=== PATIENT | female | born 1975 | race Caucasian/White ===

== ENCOUNTER 2024-12-25 07:26 | Day surgery (SDC) | payer BC, SELFPAY ==
--- OUTSIDE RECORDS SUMMARY | 2024-06-20 09:00 | XMS_ITS ---
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 [employer] [address] [facility] [address] [place] [address] 06/20/2024 Xenia Chiang Plan Of Treatment Next Appt Details Provider Name:Xenia silverman, 10/14/2025 09:20:00 AM, [address] [facility], [address], [place], [address], Progress Notes * JAKLast ANNAFARZANAOB:1975 (49 yo F)Acc No.[id number]:06/20/2024 PROGRESS NOTES Patient: ЕКАТЕРИНА ALBERT Appointment Provider: Last Chiang M.D. :1975 A ge:48 Y S ex:Female Date:06/20/2024 Address:[address] [place], [place] [id number] Pcp:KANDI SORIANO Subjective: * Chief Complaints: * 1 . 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 * Medical History: Objective: * Vitals: Assessment: Plan: * Treatment: * Images: Billing Information: * Visit Code: * Procedure Codes: * Electronic signature of Shireen Chiang MD on 12/21/2024 at 01:40 PM EDT Sign off status: Pending * Appointment Provider: Last FitchD. Date: 1 08/21/2023 Generated for Patricia nair/Damon/Vannesa on: 0 12/21/2024 01:40 PM EDT
[2024-12-21 13:40] VITALS: BMI 37.4
--- NOTE | 2024-12-24 10:17 | HO.ANESPROP2 ---
Documented by User: Stefany Redmond NP 12/24/24 10:17 HPI - Anesthesia Eval Consult details Narrative: 49yo F for Colonoscopy [facility] Past Medical History Medical History Hiatal hernia GERD (gastroesophageal reflux disease) Vertigo HTN (hypertension) Basal cell carcinoma Asthma Surgical History Surgical History History of esophagogastroduodenoscopy (EGD) H/O colonoscopy Social History Social History Are you a primary care navigator to a significant other at home: No Do you presently have visiting nurse or other home services: No Patient Tobacco Use Status: Never used Tobacco Meds Allergies Allergy/AdvReac Type Severity Reaction Status Date / Time codeine Allergy Intermediate HIVES Verified 12/25/24 07:47 Penicillins Allergy Intermediate HIVES Verified 12/25/24 07:47 Sulfa (Sulfonamide Allergy Intermediate HIVES Verified 12/25/24 07:47 Antibiotics) shellfish derived (shellfish) Allergy Unknown Unknown Verified 12/25/24 07:47 tree nut Allergy Unknown Unknown Verified 12/25/24 07:47 Home Medications ?Medication ?Instructions ?Recorded ?Confirmed ?Last Taken ?Type olmesartan 5 mg tablet 10 mg PO DAILY 12/21/24 12/21/24 Unknown History Exam Height,Weight and Vital Signs: Height 5 ft 9 in Weight 114.759 kg Assessment and Plan Assessment Anesthesia Assessment: Chart Reviewed Documented by User: Shruti Almanza MD 12/25/24 08:48 [facility] Past Medical History Medical History Hiatal hernia GERD (gastroesophageal reflux disease) Vertigo HTN (hypertension) Basal cell carcinoma Asthma Surgical History Surgical History History of esophagogastroduodenoscopy (EGD) H/O colonoscopy History of Problems with Anesthesia: No Social History Social History Are you a primary care navigator to a significant other at home: No Do you presently have visiting nurse or other home services: No Patient Tobacco Use Status: Never used Tobacco Meds Allergies Allergy/AdvReac Type Severity Reaction Status Date / Time codeine Allergy Intermediate HIVES Verified 12/25/24 07:47 Penicillins Allergy Intermediate HIVES Verified 12/25/24 07:47 Sulfa (Sulfonamide Allergy Intermediate HIVES Verified 12/25/24 07:47 Antibiotics) shellfish derived (shellfish) Allergy Unknown Unknown Verified 12/25/24 07:47 tree nut Allergy Unknown Unknown Verified 12/25/24 07:47 Home Medications ?Medication ?Instructions ?Recorded ?Confirmed ?Last Taken ?Type olmesartan 5 mg tablet 10 mg PO DAILY 12/21/24 12/21/24 Unknown History Exam Airway Mallampati Class: II Neck ROM: Full Loose/Missing/Broken Teeth: No Heart: RRR Lungs: CTA Assessment and Plan Assessment Anesthesia Assessment: Anesthesia Plan Discussed Final Anesthetic Review History of Problems with Anesthesia: No NPO: Yes ASA Class: II Final Preanesthetic Review: Meds/Allgs Chart Reviewed, Consent Obtained/Reviewed and Anes Risks/Benef Reviewed Patient Risk: Low Procedure Risk: Low Anesthetic Plan Anesthetic Plan: MAC: Disposition: Standard PACU
[2024-12-25 07:39] VITALS: BMI 37.3
[2024-12-25 07:51] LABS: UPreg QC Valid YES; Urine Pregnancy NEGATIVE (NEGATIVE)
[2024-12-25] MEDS: Lactated Ringers 1,000 ML 100 ML IVCONT (07:57)
[2024-12-25 07:59] VITALS: BP 140/92; PULSE 84; RESP 18; TEMP 36.7; O2SAT 99
--- NOTE | 2024-12-25 08:38 | MHC.SHP ---
Pre-Procedural Eval Section A - 24 Hr Update-Section A only Date of Service: 12/25/24 Section B - Complete if H&P > 30 days Chief Complaint: Hemorrhage of anus and rectum Details of Present Illness: see h&p no chabnges Relevant Family History (Specify if Yes): No Relevant Social History: None Allergies: Allergies Allergy/AdvReac Type Severity Reaction Status Date / Time codeine Allergy Intermediate HIVES Verified 12/25/24 07:47 Penicillins Allergy Intermediate HIVES Verified 12/25/24 07:47 Sulfa (Sulfonamide Allergy Intermediate HIVES Verified 12/25/24 07:47 Antibiotics) shellfish derived (shellfish) Allergy Unknown Unknown Verified 12/25/24 07:47 tree nut Allergy Unknown Unknown Verified 12/25/24 07:47 Review of Systems Sugical H&P ROS: Negative: Constitution, Cardiovascular, Respiratory, Neurological, Psychiatric, Hem-Onc, Allergic/Immunologic, Gastrointestinal, Genitourinary, Musculoskeletal, Integumentary, Endocrine and Eyes/Ears/Nose/Throat Exam Surgical H&P Exam: Normal: HEENT, Normal: Heart, Normal: Lungs, Normal: Extremities, Normal: Abdomen, Normal: Skin and Normal: Neurological Plan Diagnosis/Plan: Unchanged I have reviewed the history and physical and performed a pertinent physical examination on my patient. No changes have occurred unless specified. Time Spent With Patient Time: Total time managing care of this patient today ____ minutes.
[2024-12-25 09:05] VITALS: BP 105/65; PULSE 60; RESP 16; TEMP 36.6; O2SAT 98
[2024-12-25 09:20] VITALS: BP 127/82; PULSE 65; RESP 16; TEMP 36.6; O2SAT 95
--- NOTE | 2024-12-25 09:54 | OP_ITS ---
DATE OF SERVICE: 12/25/2024 SURGEON: Wolf Sneed MD INDICATIONS: Colon cancer screening. PREOPERATIVE DIAGNOSIS: POSTOPERATIVE DIAGNOSIS: PROCEDURE PERFORMED: Colonoscopy to the terminal ileum. ESTIMATED BLOOD LOSS: COMPLICATIONS: ANESTHESIA: Monitored anesthesia care. ASSISTANTS: SPECIMENS: DESCRIPTION OF PROCEDURE: A history and physical was performed. The risks and benefits of the procedure were explained to the patient. Informed consent was obtained. The patient was placed in the left lateral decubitus position. A digital rectal exam was performed and was found to be normal. The Olympus pediatric video colonoscope was introduced into the rectum and advanced to the cecum. The cecum was identified by transillumination, palpation, and identification of ileocecal valve. Examination was performed. The scope was removed. She tolerated the procedure well and was returned to the recovery area in stable condition. FINDINGS: The terminal ileum was examined and appeared normal. The visualized colonic mucosa was normal. The quality of the prep was good. No polyps were identified. There was very minimal diverticulosis involving the sigmoid. Retroflexed examination showed some moderate-sized internal hemorrhoids. IMPRESSION: Normal colonoscopy. RECOMMENDATION: Repeat colonoscopy in 10 years. MD EVANGELINA aBlderrama/MANDYL / [phone] MTDD
== END 2024-12-25 09:45 | disposition home or self-care (01) ==
PROVIDERS: Nurse Practitioner; PCP Family Medicine; Visit Provider Internal Medicine Gastroenterology
PROC: 0DJD8ZZ Inspection of Lower Intestinal Tract, Via Natural or Artificial Opening Endoscopic (ICD-10-PCS; CPT 45378; principal; 2024-12-25 09:10)
DX: Z12.11 Encounter for screening for malignant neoplasm of colon (principal); K57.30 Diverticulosis of large intestine without perforation or abscess without bleeding; K64.8 Other hemorrhoids; I10 Essential (primary) hypertension; J45.909 Unspecified asthma, uncomplicated; C44.91 Basal cell carcinoma of skin, unspecified; Z79.899 Other long term (current) drug therapy
CPT/HCPCS: 45378; 81025; J2003; J2704

== ENCOUNTER 2025-06-14 14:48 | Emergency (ER) | payer BC, SELFPAY ==
--- OUTSIDE RECORDS SUMMARY | 2024-06-20 08:00 | XMS_ITS ---
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 [address] [place] [address] 06/20/2024 Xenia Chiang Plan Of Treatment Next Appt Details Provider Name:Xenia silverman, 10/14/2025 09:20:00 AM, [address] [facility], [address], [place], [address], Progress Notes * ANNA MARINOFARZANAOB:1975 (49 yo F)Acc No.[id number]:06/20/2024 PROGRESS NOTES Patient: ЕКАТЕРИНА ALBERT Appointment Provider: Last Chiang M.D. :1975 A ge:48 Y S ex:Female Date:06/20/2024 Address:[address] [place], [place] [id number] Pcp:KANDI SORIANO Subjective: * Chief Complaints: * 1 . 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 * Medical History: Objective: * Vitals: Assessment: Plan: * Treatment: * Images: Billing Information: * Visit Code: * Procedure Codes: * Electronic signature of Shireen Chiang MD on 06/14/2025 at 08:39 PM EST Sign off status: Pending * Appointment Provider: Last Chiang M.D. Date: 08/21/2023 Generated for Patricia nair/Damon/Vannesa on: 08/15/2024 08:39 PM EST
--- OUTSIDE RECORDS SUMMARY | 2024-10-15 08:35 | XMS_ITS ---
Author Organization [facility] Address [address] [place] [address] Care Team Providers Care Tire Balancer Name Role Phone Clinton Coelho Primary Care Provider Wolf Mora Jr REASON FOR VISIT BLEEDING Encounters Encounter Location Date Provider Diagnosis [facility] [address] [place] [phone] 10/15/2024 Wolf Sneed Jr Plan Of Treatment No Information Progress Notes * ZI MARINOOB:1975 (49 yo F)Acc No.[id number]:10/15/2024 Progress Notes Patient: ЕКАТЕРИНА ALBERT Provider: Erma Sneed MD :1975 A ge:48 Y S ex:Female Date:10/15/2024 Address:[address] [place] [address] [facility] Pcp:Clinton Coelho Subjective: * Chief Complaints: * B LEEDING * The named appointment provid er may or may not be the originator of this progress note, and it is not deemed complete until electronically signed by the appointment provider. Sign off status: Pending * Provider: Erma Sneed MD Date: 0 10/15/2024 Generated for Jimenezi joanie/Fawilfredog/eTransmitting on: 1 08/15/2024 08:39 PM EST
--- OUTSIDE RECORDS SUMMARY | 2024-10-25 10:55 | XMS_ITS ---
Author Organization [facility] Address [address] [place] [address] Care Team Providers Care [employer] Assistant Manager Name Role Phone Clinton Coelho Primary Care Provider Wolf Mora Jr REASON FOR VISIT Patient presents today for hemo + Encounters Encounter Location Date Provider Diagnosis [facility] [address] [place] [address] 10/25/2024 Wolf Sneed Jr Plan Of Treatment No Information Progress Notes * ZI MARINOOB:1975 (49 yo F)Acc No.[id number]:10/25/2024 Progress Notes Patient: ЕКАТЕРИНА ALBERT Provider: Erma Sneed MD :1975 A ge:48 Y S ex:Female Date:10/25/2024 Address:[address] [place], [place] [phone] Pcp:Clinton Coelho Subjective: * Chief Complaints: * P atient presents today for hemo + * The named appointment provid er may or may not be the originator of this progress note, and it is not deemed complete until electronically signed by the appointment provider. Sign off status: Pending * Provider: Erma Sneed MD Date: 0 10/25/2024 Generated for Printi ng/Faxing/eTransmitting on: 1 08/15/2024 08:40 PM EST
--- OUTSIDE RECORDS SUMMARY | 2024-12-25 04:10 | XMS_ITS ---
Author Organization [facility] Address [address] [place] [phone] Care Team Providers Care Resistance Brazer Name Role Phone Clinton Coelho Primary Care Provider Wolf Mora Jr REASON FOR VISIT rectal bleeding Encounters Encounter Location Date Provider Diagnosis [facility] [address] [place] [phone] 12/25/2024 Wolf Sneed Jr Rectal bleeding K62.5 Assessments Encounter Date Diagnosis (ICD Code) Assessment Notes Treatment Notes Treatment Clinical Notes Section Notes 12/25/2024 Rectal bleeding (ICD-10 - K62.5) Plan Of Treatment No Information Progress Notes * ANNA MARINOFARZANAOB:1975 (49 yo F)Acc No.[id number]:12/25/2024 COLON WITH MAC Patient: ЕКАТЕРИНА ALBERT Provider: Erma Sneed MD :1975 A ge:49 Y S ex:Female Date:12/25/2024 Address:[address] [place], [place] [phone] Pcp:Clinton Coelho Subjective: * Chief Complaints: * R ectal bleeding Assessment: * Assessment: 1. R ectal bleeding - K62.5 (Primary) Plan: * Procedure Codes: 4 5378 DIAGNOSTIC COLONOSCOPY Billing Information: * Procedure Codes: 24942 DIAGNOSTIC COLONOSCOPY. * The named appointment provid er may or may not be the originator of this progress note, and it is not deemed complete until electronically signed by the appointment provider. Sign off status: Pending * Provider: Erma Sneed MD Date: 0 12/25/2024 Generated for Patricia nair/Damon/Vannesa on: 1 08/15/2024 08:39 PM EST
--- NOTE | ~2025-06-14 | CT_ITS ---
CLINICAL HISTORY: headache and dizziness CT head without contrast Comparison: None available Findings: No acute hemorrhage. Basal ganglia calcifications. No extra-axial fluid collection. No hydrocephalus, mass-effect or herniation. Burden-white differentiation is maintained. White matter is within normal limits for age. No acute orbital pathology. No acute soft tissue abnormality. No fracture. The visualized paranasal sinuses are predominantly clear. The mastoid air cells are clear. Impression: No acute findings. This document has been electronically signed by: Kalpana Weiss MD on 06/14/2025 17:51:52
[2025-06-14 14:58] VITALS: BP 128/96; PULSE 78; O2SAT 100
[2025-06-14 15:00] VITALS: BP 150/73; PULSE 72; RESP 16; TEMP 35.9; O2SAT 99; BMI 37.2
--- NOTE | 2025-06-14 15:14 | ECG_ITS ---
Test Reason : Dizziness Blood Pressure : */* mmHG Vent. Rate : 72 BPM Atrial Rate : 72 BPM P-R Int : 200 ms QRS Dur : 72 ms QT Int : 388 ms P-R-T Axes : 46 0 -1 degrees QTcB Int : 424 ms Normal sinus rhythm Septal infarct (cited on or before 05-Feb-2009) Abnormal ECG When compared with ECG of 05-Feb-2009 21:53, Nonspecific T wave abnormality, worse in Inferior leads Nonspecific T wave abnormality now evident in Anterior leads Referred By: Imani Tom Electronically Signed By: AMOL STUART MD
--- NOTE | 2025-06-14 15:24 | ED_ITS ---
HPI - General Adult General Chief complaint: General Medical Stated complaint: DIZZINESS NAUSEA Time Seen by Provider: 06/14/25 15:00 Source: patient and EMS Mode of arrival: EMS Limitations: no limitations History of Present Illness ED Provider: MIS SANTIZO narrative: 49-year-old female with past medical history of prior dizziness episodes but not this severe, hypertension, she is not on any blood thinners. She notes she has been dealing with sinus like illness and has been trying [id number] medications including Sudafed. 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 She states anytime she moves it is severe. She has no ringing in her ears. She has no chest pain or trouble breathing. She has no other neuro deficits such as numbness, weakness, vision changes. She has had similar symptoms in the past but this is very severe. She feels extremely nauseated. She denies any recent head trauma or chiropractor manipulation. MD complaint: acute onset dizziness, nausea, vomiting Onset (ago): hour(s) ( 10:30 today) Location: head Radiation: non-radiation Severity: moderate Relieving factors: immobilization Exacerbating factors: movement Associated symptoms: loss of appetite and nausea/vomiting Treatments prior to arrival: none Related Data Home Medications ?Medication ?Instructions ?Recorded ?Confirmed olmesartan 5 mg tablet 10 mg PO DAILY 12/21/2412/03 Allergies Allergy/AdvReac Type Severity Reaction Status Date / Time codeine Allergy Intermediate HIVES Verified 06/14/25 15:03 Penicillins Allergy Intermediate HIVES Verified 06/14/25 15:03 Sulfa (Sulfonamide Allergy Intermediate HIVES Verified 06/14/25 15:03 Antibiotics) shellfish derived (shellfish) Allergy Unknown Unknown Verified 06/14/25 15:03 tree nut Allergy Unknown Unknown Verified 06/14/25 15:03 Review of Systems 2 Review of Systems: Constitutional : No Fever, No Chills, No Fatigue ENT/Mouth : No sore throat, No Rhinorrhea, positive sinus congestion Eyes: No Eye Pain, No Swelling, No Redness Cardiovascular : No Chest Pain, No SOB, No Dyspnea on Exertion Respiratory : No Cough, No Sputum Gastrointestinal : pos Nausea, pos Vomiting, No Diarrhea, No abdominal Pain Genitourinary : No Dysuria, No Urinary Frequency, No Hematuria, Musculoskeletal : No joint pain, No Myalgias, No Joint Swelling Skin : No Skin Lesions, No rash Neuro : No Weakness, No Numbness, pos Dizziness, positive Headache All other systems reviewed and are negative [facility] Past Medical History Attestation statement: The following information was validated with the patient. Source: old records reviewed Medical History Hiatal hernia GERD (gastroesophageal reflux disease) Vertigo HTN (hypertension) Basal cell carcinoma Asthma Surgical History History of esophagogastroduodenoscopy (EGD) H/O colonoscopy Social History Social History Are you a primary inpatient care manager rn to a significant other at home: No Do you presently have visiting nurse or other home services: No Patient Tobacco Use Status: Never used Tobacco Smoked in Last 30 Days: No Use of substances other than those prescribed or required for medical reasons: No Advance Directives: No Advance Directives Information Provided: Yes Physical Exam ED Vital Signs: Vital Signs - 24 hr 06/14/25 15:00 06/14/25 16:00 Temperature 96.6 F L Pulse Rate 72 80 Respiratory Rate 16 20 Blood Pressure 150/73 H 148/78 H Pulse Oximetry 99 97 Oxygen Delivery Method Room Air Room Air BMI result Body Mass Index 37.2 Appearance: Alert. Oriented X3. moderate acute distress. active dry heaving if I ask her to move Eyes: Pupils equal, round and reactive to light. she has slight nystagmus when looking to the left ENT: Pharynx normal. Neck: Normal inspection. Neck supple. CVS: Normal heart rate and rhythm. Pulses normal. Respiratory: No respiratory distress. Breath sounds normal. Abdomen: Soft and nontender. Skin: Skin warm and dry. Normal skin color. Normal skin turgor. Extremities: No lower extremity edema. No calf ttp Neuro: Oriented X 3. No motor deficit. No sensory deficit. CN2-12 intact Course Course Course Narrative: signed out to Dr. Cornell pending CT scan and reassessment.4:22 PM 06/14/2025 (MIS MURPHY): Medications Administered Discontinued Medications Generic Name Dose Route Start Last Admin Trade Name Freq PRN Reason Stop Dose Admin Diphenhydramine HCl 25 mg 06/14/25:13 06/14/25 15:38 Diphenhydramine Hcl 50 Mg/Ml Vial IVPUSH 06/14/25 15:14 25 mg ONCE ONE Administration Acetaminophen 1,000 mg in 100 mls @ 400 mls/hr 06/14/25 15:13 06/14/25 16:49 Ofirmev IV 06/14/25 15:27 Infused ONCE ONE Infusion Prochlorperazine Edisylate 10 mg 06/14/25 15:13 06/14/25 15:38 Prochlorperazine Edisylate 10 Mg/2 Ml Vial IVPUSH 06/14/25 15:14 10 mg ONCE ONE Administration Medical Decision Making Differential Diagnosis Differential Diagnoses: The differential diagnosis associated with the presentation includes sinusitis, dizziness, dehydration, ESPINOZA she has no other neuro symptoms to suggest a posterior stroke but I will watch closely. She has no neck pain. I am going to obtain a CT head to rule out intracranial hemorrhage CT head was interpreted by radiology's grossly negative. No evidence of bleeding. Patient's electrolytes unremarkable. Well-appearing. Neurologically intact. No fever no chills white count is normal no signs of meningitis. No focal weakness. Will discharge patient home close follow-up on an outpatient basis. Symptom improved. COVID flu RSV were all negative. Admission/Observation Consideration of admission/observation: Escalation of care including admission/observation considered Lab Data MDM Lab Attestation statement: I reviewed the patient's lab results. 06/14/25 15:33 06/14/25 15:33 Labs: Lab Results 06/14/25 06/14/25 Range/Units 15:33 15:43 WBC 7.4 (4.8-10.8) X10*3/uL RBC 4.66 (4.20-5.50) X10*6/uL Hgb 12.8 (12.0-16.0) g/dl Hct 39.2 (37.0-47.0) % MCV 84.1 (80.0-98.0) fL MCH 27.5 (27.0-33.0) pg MCHC 32.7 (31.0-35.0) g/dl RDW 14.6 (11.0-16.0) % Plt Count 247 (160-400) X10*3/uL MPV 9.9 (9.4-12.3) fL Immature Gran % (Auto) 0.5 H (0.0-0.4) % Neut % (Auto) 83.9 H (45-73) % Lymph % (Auto) 12.3 L (20-40) % [place] % (Auto) 2.6 (2-11) % Eos % (Auto) 0.3 (0-4) % Baso % (Auto) 0.4 (0-2) % Lymph # (Auto) 0.9 L (1.2-4.9) X10*3/uL [place] # (Auto) 0.2 (0.1-1.2) X10*3/uL Eos # (Auto) 0.0 (0.0-0.4) X10*3/uL Baso # (Auto) 0.0 (0.0-0.2) X10*3/uL Abs Immat Gran (auto) 0.04 H (0.00-0.03) X10*3/uL Absolute Neuts (auto) 6.2 (2.0-8.3) x10*3/uL Absolute Nucleated RBC 0.000 (0.0-0.012) X10*3/uL Nucleated RBC % (auto) 0.0 (0.0-0.2) /100WBC Sodium 137 (135-145) mmol/L Potassium 3.9 (3.3-5.1) mmol/L Chloride 106 (96-108) mmol/L Carbon Dioxide 23 (22-29) mmol/L Anion Gap 12 (12-20) BUN 20 H (9-16) mg/dL Creatinine 0.66 (0.5-1.4) mg/dL Estim Creat Clear Calc 139.1 Estimated GFR > 60 Random Glucose 122 H (60-115) mg/dL Calcium 8.8 (8.4-10.2) mg/dL Magnesium 2.1 (1.6-2.6) mg/dL Total Bilirubin 0.5 (0.0-1.0) mg/dL Direct Bilirubin 0.2 (0.0-0.5) mg/dL AST 28 (5-31) U/L ALT 20 (0-31) U/L Alkaline Phosphatase 104 (39-117) U/L Troponin I High Sens < 2.7 (<3.5-17.0) ng/L Total Protein 7.1 (6.5-8.0) g/dL Albumin 4.3 (3.5-5.0) g/dL Lipase 12 (8-78) U/L Influenza Type A (PCR) NEGATIVE (Negative) Influenza Type B (PCR) NEGATIVE (Negative) RSV RNA Qual (PCR) NEGATIVE (Negative) SARS-CoV-2 RNA (RT-PCR) NEGATIVE (Negative) Independent Interpretation I performed an independent interpretation of an: EKG and CT Scan Interpretation: Rate: 72 Rhythm: NSR State [place]: left Normal P waves. Normal RYAN. Normal QRS complex. ST T wave : no CLEO, flat t waves lateral leads qTC: 424 prior studies: no acute ischemia The study has been interpreted contemporaneously by me. . Radiology Impression Discussion of test interpretation with radiology: I have reviewed the radiologist's reading. Independent Historian Clinical information obtained from an independent historian. History obtained from or confirmed by: EMS External Record Review External record reviewed: Outpatient record Discharge Plan Discharge Clinical Impression: Dizziness Nausea & vomiting Qualifiers: Vomiting type: unspecified Qualified Code(s): R11.2 - Nausea with vomiting, unspecified Patient Disposition: Home, Self-Care Instructions: Acute Headache (DC) Prescriptions: No Action olmesartan 5 mg tablet 10 mg PO DAILY Referrals: Clinton Sanchez MD [Primary Care Provider, Family Practice] - 06/17/25 Print Language: Salvadorean
[2025-06-14 15:41] LABS: MANUAL DIFF FLAG NO
[2025-06-14 15:57] LABS: Alanine Aminotransferase 20 U/L (0-31); Albumin Level 4.3 g/dL (3.5-5.0); Alkaline Phosphatase 104 U/L (39-117); Anion Gap 12 (12-20); Aspartate Amino Transferase 28 U/L (5-31); Blood Urea Nitrogen 20 mg/dL (9-16); Calcium 8.8 mg/dL (8.4-10.2); Carbon Dioxide 23 mmol/L (22-29); Chloride 106 mmol/L (96-108); Creatinine Clr Calc Pharmacy 139.1; Estimated Glomerular Filt Rate > 60; Hematocrit 39.2 % (37.0-47.0); Hemoglobin 12.8 g/dl (12.0-16.0); Imm Gran Abs Auto 0.04 X10*3/uL (0.00-0.03); Imm Gran Pct Auto 0.5 % (0.0-0.4); Lipase 12 U/L (8-78); Lymphocytes Absolute Auto 0.9 X10*3/uL (1.2-4.9); Magnesium 2.1 mg/dL (1.6-2.6); Mean Corpuscular HGB Conc 32.7 g/dl (31.0-35.0); Mean Corpuscular Hemoglobin 27.5 pg (27.0-33.0); Mean Corpuscular Volume 84.1 fL (80.0-98.0); NRBC Abs Auto 0.000 X10*3/uL (0.0-0.012); NRBC Pct Auto 0.0 /100WBC (0.0-0.2); Platelet Count 247 X10*3/uL (160-400); Potassium 3.9 mmol/L (3.3-5.1); Red Blood Count 4.66 X10*6/uL (4.20-5.50); Sodium 137 mmol/L (135-145); Total Protein 7.1 g/dL (6.5-8.0); White Blood Count 7.4 X10*3/uL (4.8-10.8)
[2025-06-14 16:00] VITALS: BP 148/78; PULSE 80; RESP 20; O2SAT 97
[2025-06-14 16:06] LABS: Troponin-I High Sensitivity < 2.7 ng/L (<3.5-17.0)
[2025-06-14 17:03] LABS: Resp Syncy Virus RNA Qual PCR NEGATIVE (Negative); SARS COV2 PCR INHOUSE NEGATIVE (Negative)
[2025-06-14 18:20] VITALS: BP 148/78; PULSE 80; RESP 20; TEMP 36.2; O2SAT 97
--- OUTSIDE RECORDS SUMMARY | 2025-06-14 20:39 | XMS_ITS | Clinical Summary ---
Author Organization [facility] Address [address] [place] [id number] Phone Care Team Providers Care Press Cutter Name Role Phone Clinton Rogers MD Primary Care Prov ider Allergies Active Allergy Reactions Criticality Noted Date Comments Codeine 01/19/2021 Peanut 01/19/2021 Penicillins 01/19/2021 Shellfish Containing Products 2020 Sulfa (Sulfonamide Antibiotics) 01/01 Tree Nuts 01/19/2021 Medications EPINEPHrine 0.3 mg/0.3 mL auto-injector USE DIRECTED FOR ANAPHYLAXIS THEN CALL 911 1 Active cetirizine (ZYRTEC) 5 MG tablet Take 5 mg by mouth daily. Active cetirizine (ZYRTEC) 10 mg capsule 1 tablet Orally Once a day Active lisinopril (PRINIVIL,ZESTR IL) 5 MG tablet Take 1 tablet by mouth every morning. 3 Active Active Problems No known active problems Social History Tobacco Use Types Packs/Day Years Used Date Smoking Tobacco: Never Smokeless Tobacco: Never Alcohol Use Standard Drinks/Week Comments Never 0 (1 standard drink = 0.6 oz pur e alcohol) Education Answer Date Recorded Are you interested in more education? Not on alexandro e 10/29/2022 Are you concerned about learning? Not on file 10/29/2022 No 10/29/2022 No 10/29/2022 Digital Access Answer Date Recorded No 11/26/2022 No 11/26/2022 No 11/26/2022 Reliable internet access at home? Not on file 11/26/2022 Device with a working camera? Not on file Comments Unknown Sex and Gender Information Value Date Recorded Sex Assigned at Not on file Legal Sex Female 9:27 PM EDT Gender Identity Not on file Sexual Orientation Not on file Last Filed Vital Signs Vital Sign Reading Time Taken Comments Blood Pressure 132/90 02/27/2023 9:27 AM EDT Pulse 95 02/27/2023 9:27 AM EDT Temperature 36.2 C (97.2 F) 02/27/2023 9:27 AM EDT Respiratory Rate 16 02/27/2023 9:27 AM EDT Oxygen Saturation 99% 02/27/2023 9:27 AM EDT Inhaled Oxygen Concentration - - Weight 108.9 kg (240 lb) 02/27/2023 9:27 AM EDT Height 175.3 cm (5' 9 ) 02/27/2023 9:27 AM EDT Body Mass Index 35.44 02/27/2023 9:27 AM EDT Plan of Treatment Health Maintenance Due Date Last Done Comments CREATININE LEVEL 1975 LIPID PANEL 1975 POTASSIUM LEVEL 1975 DEPRESSION SCREENING 1987 HEPATITIS C SCREENING 11/17/1993 HIV ONE-TIME SCREENING (18-65 YEARS) 11/17/1993 PAP SMEAR 11/17/1996 SCREENING FOR DIABETES 11/17/2010 MAMMOGRAM 2015 COLOGUARD 11/17/2020 COLONOSCOPY 11/17/2020 COLORECTAL CANCER SCREENING 11/17/2020 FIT TEST 11/17/2020 FOBT 11/17/2020 SIGMOIDOSCOPY 11/17/2020 VIRTUAL COLONOSCOPY 11/17/2020 INFLUENZA VACCINE (#1) 2025 , 04/14/2021, 04/24/2020, Additional history exists COVID-19 VACCINE ( season) 2025 06/30/2021, 12/24/2020, 09/18/2020 Adult Td,Tdap Booster 07/20/2031 07/20/2021, 012 SMOKING STATUS SCREENING (Once After 26 Yrs) Completed 01/19/2021 HEPATITIS A VACCINES Aged Out No long er eligible based on patient's age to complete this topic HIB VACCINES Aged Out No longer eligi ble based on patient's age to complete this topic MENINGOCOCCAL VACCINES (ACWY) Aged Out No longer eligible based on patient's age to complete this topic MENINGOCOCCAL VACCINES (B) Aged Out N o longer eligible based on patient's age to complete this topic PNEUMOCOCCAL VACCINES (0-49 years) Aged Out No longer eligible based on patient's age to complete this topic Medical Devices Not on file Insurance PPO [place] [address] [address] [place] [address] [place] [address] [place] [address] [place] [address] PPO EPO [place] [address] [address] PPO EPO Care Teams Press Cutter Relationship Specialty Start Date End Date Clinton Rogers MD [email or web address] PCP - General Family Medicine 01/19/21 Additional Source Comments The information contained in this document represents components of the legal health record. It is not the complete legal health record.[facility]
--- OUTSIDE RECORDS SUMMARY | 2025-06-14 20:39 | XMS_ITS | Patient Health Record ---
Author Organization [facility] Address [address] [place] [address] Care Team Providers Care Statistical Reporting Analyst Name Role Phone Clinton Coelho Primary Care Provider Wolf Mora Jr Unavailable Allergies Allergen (clinical drug ingredient) Drug/Non Drug Allergy documented on EMR Reaction Allergy Type Onset Date Status nuts,shell fish (uncoded) Unknown Allergy Active codeine Codeine Sulfate Unknown Drug Allergy A ctive Penicillin Unknown Drug Allergy Active Sulfa Unknown Drug Allergy Active Results Component Value Reference Range Notes Ur Preg Test Reviewed date:12/25/2024 04:37:38 PM Interpretation: Performing Lab:[facility], [address] [place] [id number] Notes/Report: Urine NEGATIVE NEGATIVE This test was developed to detect early . False negative results may occur after the 5th - 7th week of when using this test method. If clinically indicated, consider a serum hCG. 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 Problems Problem Type SNOMED Code ICD Code Onset Dates Problem Status W/U Status Risk Notes Problem Rectal bleeding (94664281) Rectal bleeding (K62.5) Active confirmed Problem Hemorrhoids (19636891) Hemorrhoids (K64.9) Active confirmed Problem Gastro-esophagea l reflux disease without esophagitis (666549961) Gastro-esophage al reflux disease without esophagitis (K21.9) Active confirmed Problem Hemorrhage of rectum and anus (992006014) Rectal bleed (K62.5) Active confirmed Problem Abnormal feces (427850319) Abnormal findings in stool (R19.5) Active confirmed Vital Signs Blood pressure diastolic 77 mm Hg 10/25/2024 Height 69 in 10/25/2024 Blood pressure systolic 111 mm Hg 10/25/2024 Weight 253 lbs 10/25/2024 BMI 37.36 kg/m2 10/25/2024 Encounters Encounter Location Date Provider Diagnosis [facility] [address] [place], [place] [id number] 12/25/2024 Wolf Sneed Jr Rectal bleeding K62.5 [facility] [address] [place] [address] [address] [place] [phone] 10/25/2024 Wolf Sneed Jr Rectal bleed K62.5 and Hemorrhoids K64.9 [facility] [address] [place] [phone] 09/14/2024 Wolf Sneed Jr Assessments Encounter Date Diagnosis (ICD Code) Assessment Notes Treatment Notes Treatment Clinical Notes Section Notes 12/25/2024 Rectal bleeding (ICD-10 - K62.5) 10/25/2024 Hemorrhoids (ICD-10 - K64.9) We discussed rectal bleeding. We discussed the causes for this. We discussed further evaluation with colonoscopy. This will be arranged. We discussed hemorrhoids. We discussed treatment with hydrocortisone cream. 10/25/2024 Rectal bleed (ICD-10 - K62.5) We discussed rectal bleeding. We discussed the causes for this. We discussed further evaluation with colonoscopy. This will be arranged. We discussed hemorrhoids. We discussed treatment with hydrocortisone cream. Plan Of Treatment Future Test Test Name Order Date COLONOSCOPY 07/30/2015 COLONOSCOPY 10/25/2024 Insurance Providers Payer Name Payer Address Payer Phone Subscriber Number Group Number Insured Name Patient Relationship to Insured Coverage Start Date Coverage End Date [facility] [facility] [address] [place] [address] [id number] ЕКАТЕРИНА MARINO Self - patient is the insured Medical (General) History Medical History History ICD Code Asthma basal cell carcinoma hypertension Vertigo
--- OUTSIDE RECORDS SUMMARY | 2025-06-14 20:40 | XMS_ITS | Patient Health Record ---
Author Organization [facility] Address [address] [place] [address] Care Team Providers Care Quality Assurance Clerk Name Role Phone KANDI SORIANO Primary Care Provider Xenia Beaver Unavailable [phone] Allergies Allergen (clinical drug ingredient) Drug/Non Drug Allergy documented on EMR Reaction Allergy Type Onset Date Status codeine Codeine Hives Drug Allergy Active Penicillin Hives Drug Allergy Active Substance with sulfonamide structure and antibacterial mechanism of action (substance) Sulfa Antibiotics Hives Drug Allergy Active Results Component Value Reference Range Notes Urinalysis Reviewed date:09/20/2024 02:02:40 PM Interpretation: Performing Lab: Notes/Report: PH 5.0 PROTEIN Neg GLUCOSE Neg BLOOD Neg Reason For Referral No Information Medications Medication SIG (Take, Route, Frequency, Duration) Notes Start Date End Date Status Probiotic Product ORAL; Duration: -3 09/17/2011 Active Olmesartan Medoxomil 5 MG TAKE 2 TABLETS BY MOUTH EVERY DAY FOR 90 DAYS Oral; Duration: 30 Days Active ZyrTEC Allergy 10 MG 1 tablet Orally Once a day Active Albuterol Sulfate 2MG 1 as needed 09/17/2011 Active Social History Tobacco Use: Social History Observation Description Date Details (start date - stop date) Never Smoker NA - NA AUDIT-C (Standard) Question Answer Notes Did you have a drink containing alcohol in the p ast year? No Points 0 Interpretation Negative Tobacco Control (Standard) Question Answer Notes Tobacco use: Nonsmoker Problems Problem Type SNOMED Code ICD Code Onset Dates Problem Status W/U Status Risk Notes Problem Essential hypertension (49445317) Essential (primary) hypertension (I10) Active confirmed Problem Abnormal vaginal bleeding (580771125) Other specified abnormal uterine and vaginal bleeding (N93.8) Active confirmed Problem Abnormal uterine bleeding (12343245296877) Abnormal uterine and vaginal bleeding, unspecified (N93.9) Active confirmed Problem Unspecified menopausal and perimenopausal disorder (N95.9) Active confirmed Problem Asthma (disorder) (884927604) Asthma, unspecified, unspecified status (493.90) Active confirmed Major Problem Esophageal reflux (458142866) Esophageal reflux (530.81) Active confirmed Major Problem Gynecological examination normal (531050660581094) Routine gynecological examination (V72.31) Active confirmed Major Vital Signs Temperature 97.4 degrees Fahrenheit 09/20/2024 Blood pressure diastolic 74 mm Hg 09/20/2024 Height 68 in 09/20/2024 Blood pressure systolic 124 mm Hg 09/20/2024 Weight 251 lbs 09/20/2024 BMI 38.16 kg/m2 09/20/2024 Encounters Encounter Location Date Provider Diagnosis [facility] [address] [place] [address] 09/20/2024 Xenia Chiang Encounter for gynecological examination (general) (routine) without abnormal findings Z01.419 ; Encounter for screening mammogram for malignant neoplasm of breast Z12.31 and Unspecified menopausal and perimenopausal disorder N95.9 [employer] [address] [place] [address] 05/13/2025 Xenia Chiang Assessments Encounter Date Diagnosis (ICD Code) Assessment Notes Treatment Notes Treatment Clinical Notes Section Notes 09/20/2024 Encounter for gynecological examination (general) (routine) without abnormal findings (ICD-10 - Z01.419) NO PAP TEST, DUE IN 2025. 09/20/2024 Encounter for screening mammogram for malignant neoplasm of breast (ICD-10 - Z12.31) REGULAR MAMMOGRAMS AND SBE'S WERE RECOMMENDED. 09/20/2024 Unspecified menopausal and perimenopausal disorder (ICD-10 - N95.9) DISCUSSED PERIMENOPAUSE AND SYMPTOMS ASSOCIATED WITH THIS. MONITOR MENSES CLOSELY AND CALL IF ABNORMAL. ESTROVEN FOR WORSENING MENOPAUSAL SYMPTOMS. Plan Of Treatment Pending Test Test Name Order Date Urinalysis 03/01/2022 Urinalysis 08/10/2017 MM Digital Mammo Screening 12/20/2019 MM Digital Mammo Screening 01/16/2021 MM Digital Mammo Screening 03/01/2022 MM Digital Mammo Screening 06/16/2023 MM Digital Mammo Screening 09/20/2024 Next Appt Details Provider Name:Xenai silverman, 10/14/2025 09:20:00 AM, [address], [address], [place], [address], Insurance Providers Payer Name Payer Address Payer Phone Subscriber Number Group Number Insured Name Patient Relationship to Insured Coverage Start Date Coverage End Date [employer] [address] [place] [address] [id number] JEROMY MARINO Spouse - patient is the spouse of the insured Medical (General) History Medical History History ICD Code Other asthma J45.998 Gastro-esophageal reflux disease without esophagitis K21.9 Unspecified menopausal and perimenopausa l disorder N95.9 Abnormal uterine and vaginal bleeding, u nspecified N93.9 Essential (primary) hypertension I10 Surgical History Surgery Date(Month/Year) Skin Biopsy Left Leg [place] Teeth Colonoscopy 2016 Hospitalization History Reason Date(Month/Year) 2 Vaginal Deliveries
== END 2025-06-14 18:20 | disposition home or self-care (01) ==
PROVIDERS: Emergency Medicine; Emergency Provider Emergency Medicine Emergency Medical Services; PCP Family Medicine
DX: R11.2 Nausea with vomiting, unspecified (principal); R42 Dizziness and giddiness; Z03.818 Encounter for observation for suspected exposure to other biological agents ruled out; J45.909 Unspecified asthma, uncomplicated
CPT/HCPCS: 70450; 80048; 80076; 83690; 83735; 84484; 85025; 87637; 93005; 96365; 96375; 99284; 99285; J0131; J0737; J1200

== ENCOUNTER → 2025-06-14 15:14 | Outpatient (BNV) | payer BC, SELFPAY | PROVIDERS: Emergency Provider Emergency Medicine Emergency Medical Services; PCP Family Medicine; Visit Provider Radiology Diagnostic Radiology | DX: R51.9 Headache, unspecified (principal); R42 Dizziness and giddiness | CPT/HCPCS: 70450 ==

== ENCOUNTER → 2025-06-14 15:14 | Outpatient (BNV) | payer BC, SELFPAY | PROVIDERS: Emergency Provider Emergency Medicine Emergency Medical Services; PCP Family Medicine; Visit Provider Internal Medicine Cardiovascular Disease | DX: I25.2 Old myocardial infarction (principal) | CPT/HCPCS: 93010 ==